=== PATIENT | female | born 1930 | race African-American/Black ===

== ENCOUNTER 2017-05-18 10:14 | Observation (INO) ==
--- NOTE | 2017-05-18 10:37 | Emergency Department Note ---
Disposition Clinical Impression: Shortness of breath Congestive heart failure Qualifiers: Heart failure type: diastolic Heart failure chronicity: acute on chronic Qualified Code(s): I50.33 - Acute on chronic diastolic (congestive) heart failure Disposition: Admitted As Inpatient Condition: Fair Time of Disposition: 15:00 SOB HPI - General Chief Complaint: ED Shortness of Breath/Dyspnea Stated Complaint: CIPRIANO Time Seen by Provider: 05/18/17 10:22 Source: family Mode of arrival: private vehicle Limitations: no limitations Nursing Notes Reviewed: Yes Vital Signs Reviewed: Yes - History of Present Illness 86-year-old female history of history of diastolic congestive heart failure, atrial fibrillation on anticoagulation presents to the ER with a chief complaint of shortness of breath. Patient states she has been sort of breath for the last 2-3 days. Reports more whenever she is up moving around. States it feels better when she sitting at rest. She has no chest pain during these events. She reports that she has been waking up with "rattling in her chest". No cough. No recent illnesses. No fevers sore throat runny nose nausea or vomiting. She is status post ablation for atrial fibrillation. She is on Coumadin for anticoagulation with 1 prior DVT 4 years ago. Pt Subjective Complaint: shortness of breath Onset (ago): day(s) Severity: moderate Consistency/Duration: intermittent Improves with: rest Worsens with: exertion Known history of: congestive heart failure Associated symptoms: Denies: chest pain, fever, cough, lower extremity pain Treatment prior to arrival: none Cough present: No Sputum production: No Sputum Amount: None - Related Data Home oxygen amount: none Home Medications Medication Instructions Recorded Confirmed Alendronate Sodium 70 mg PO 02/03/15 05/18/17 Aspirin Enteric Coated [Aspirin EC] 81 mg PO [facility] 02/03/15 05/18/17 Calcium Carbonate/Vitamin D3 1 each PO [facility] 02/03/15 05/18/17 [Calcium 500-Vit D3 400 Tablet] Cholecalciferol (Vitamin D3) 1,000 unit PO [facility] 02/03/15 05/18/17 [Vitamin D] Escitalopram [Lexapro] 10 mg PO QA 02/03/15 05/18/17 Metoprolol XL (24 HR) Succ [Toprol 50 mg PO BID 02/03/15 05/18/17 XL] Oxybutynin [Ditropan] 2.5 mg PO DAILY 02/03/15 05/18/17 Levothyroxine [Synthroid] 25 mcg PO QAM 11/15/15 05/18/17 Warfarin [Coumadin] 5 mg PO [id number] 11/15/15 05/18/17 Warfarin [Coumadin] 7.5 mg PO SUTH 11/15/15 05/18/17 Latanoprost [Xalatan] 1 drop OP HS 05/18/17 05/18/17 Pravastatin Sodium [Pravachol] 40 mg PO QPM 05/18/17 05/18/17 dilTIAZem HCl [Diltiazem 24Hr Cd] 120 mg PO DAILY 05/18/17 05/18/17 Previous Rx's Medication Instructions Recorded Potassium Chloride 20 meq PO DAILY #30 tab.er.prt 02/05/15 Furosemide [Lasix] 40 mg PO BID 30 Days tab 12/11/15 Allergies Allergy/AdvReac Type Severity Reaction Status Date / Time No Known Allergies Allergy Verified 05/18/17 10:20 All systems ED: reviewed and negative except as stated. Constitutional: Denies: fever Cardiovascular: Reports: dyspnea on exertion. Denies: chest pain Respiratory: Reports: dyspnea. Denies: cough Gastrointestinal: Denies: abdominal pain, nausea, vomiting Past Medical History - Past Medical History Attestation: Yes The following information was validated with the patient. 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 - Social History Smoking Status: Never smoker Smokeless Tobacco Status: No Alcohol use: Reports: rarely Drug use: Reports: none Physical Exam - General Limitations: no limitations General appearance: alert, in no apparent distress - Head Head exam: atraumatic, normocephalic - Eye Eye exam: Present: normal appearance - ENT ENT exam: normal exam - Neck Neck exam: Present: normal inspection, full ROM - Chest Chest inspection: Present: normal inspection, symmetric chest wall rise - Respiratory Respiratory exam: Present: normal lung sounds bilaterally - Cardiovascular Cardiovascular exam: Present: regular rate, normal rhythm, normal heart sounds - Abdominal Exam Abdominal exam: Present: soft, Non-Tender. Absent: tenderness - Extremities Exam Extremities exam: Present: normal inspection, full ROM - Expanded Upper Extremity Exam Shoulder exam: Present: normal inspection, full ROM Arm exam: Present: normal inspection, full ROM Elbow exam: Present: normal inspection, full ROM Forearm/Wrist exam: Present: normal inspection, full ROM Hand exam: Present: normal inspection, full ROM Vascular exam: Normal: radial pulse - Expanded Lower Extremity Exam Hip/Pelvis exam: Present: normal inspection, full ROM Upper leg exam: Present: normal inspection, full ROM Knee exam: Present: normal inspection, full ROM Lower leg exam: Present: normal inspection, full ROM, swelling (Scant lower extremity pitting edema) Ankle exam: Present: normal inspection, full ROM Foot/toe exam: Present: normal inspection, full ROM - Skin Skin exam: Present: warm, dry Course Course Narrative: Patient seen and examined. Vital signs reviewed. We will get an EKG, chest x- ray as well as labs including troponin and BNP. - Reevaluation(s) Reevaluation #1: Discussed results of imaging and labs with the patient. We will give her dose of IV Lasix here admit for CHF exacerbation, palpitations, exertional dyspnea. Vital Signs Temperature 97.7 F 05/18/17 10:20 Pulse Rate 85 05/18/17 10:20 Respiratory Rate 18 05/18/17 10:20 Blood Pressure 121/76 05/18/17 10:20 O2 Sat by Pulse Oximetry 96 05/18/17 10:20 Temperature 97.5 F L 05/18/17 13:05 Pulse Rate 84 05/18/17 13:05 Respiratory Rate 17 05/18/17 13:05 Blood Pressure 107/63 05/18/17 13:05 O2 Sat by Pulse Oximetry 95 05/18/17 13:05 Oxygen Delivery Oxygen Delivery Room Air Shortness of Breath/Dyspnea - Lab Data Lab results reviewed: Yes I reviewed the patient's lab results. Result diagrams: 05/18/17 10:43 05/18/17 10:43 Lab Results 05/18/17 05/18/17 05/18/17 Range/Units 10:43 10:43 10:43 WBC 6.6 (4.3-11.1) K/mcL RBC 4.38 (3.82-4.97) M/mcL Hgb 11.5 (11.5-15.4) g/dL Hct 36.3 (35.3-44.9) % MCV 82.9 L (83.0-100.0) fL MCH 26.3 L (28.0-33.3) pg MCHC 31.7 (31.6-35.5) g/dL RDW 14.6 H (11.5-14.5) % Plt Count 206 (140-400) K/mcL MPV 10.0 (9.4-12.4) fL Immature Gran % 0.5 (0-4) % Seg Neutrophils % 65.8 % Lymphocytes % 18.6 % Monocytes % 9.5 % Eosinophils % 3.8 % Basophils % 1.8 % Neutrophils # 4.4 (1.6-8.9) K/mcL Lymphocytes # 1.2 (0.6-4.6) K/mcL Monocytes # 0.6 (0.0-1.3) K/mcL Eosinophils # 0.3 (0.0-0.6) K/mcL Basophils # 0.1 (0.0-0.2) K/mcL PT 26.0 H (9.4-12.1) Seconds INR 2.4 Sodium 138 (136-145) mEq/L Potassium 4.1 (3.5-5.1) mEq/L Chloride 108 H (98-107) mEq/L Carbon Dioxide 23 (23-29) mEq/L BUN 21 (8-23) mg/dL Creatinine 0.91 (0.60-1.20) mg/dL Est GFR ( Amer) > 60 (> 60) Est GFR (Non-Af Amer) 59 L (> 60) BUN/Creatinine Ratio 23 (6-26) Glucose 105 (70-105) mg/dL Calculated Osmolality 289 (280-300) Calcium 8.9 (8.6-10.3) mg/dL Troponin I (< 0.04) ng/mL B-Natriuretic Peptide (Less than 100) pg/mL 05/18/17 05/18/17 Range/Units 10:43 10:43 WBC (4.3-11.1) K/mcL RBC (3.82-4.97) M/mcL Hgb (11.5-15.4) g/dL Hct (35.3-44.9) % MCV (83.0-100.0) fL MCH (28.0-33.3) pg MCHC (31.6-35.5) g/dL RDW (11.5-14.5) % Plt Count (140-400) K/mcL MPV (9.4-12.4) fL Immature Gran % (0-4) % Seg Neutrophils % % Lymphocytes % % Monocytes % % Eosinophils % % Basophils % % Neutrophils # (1.6-8.9) K/mcL Lymphocytes # (0.6-4.6) K/mcL Monocytes # (0.0-1.3) K/mcL Eosinophils # (0.0-0.6) K/mcL Basophils # (0.0-0.2) K/mcL PT (9.4-12.1) Seconds INR Sodium (136-145) mEq/L Potassium (3.5-5.1) mEq/L Chloride (98-107) mEq/L Carbon Dioxide (23-29) mEq/L BUN (8-23) mg/dL Creatinine (0.60-1.20) mg/dL Est GFR ( Amer) (> 60) Est GFR (Non-Af Amer) (> 60) BUN/Creatinine Ratio (6-26) Glucose (70-105) mg/dL Calculated Osmolality (280-300) Calcium (8.6-10.3) mg/dL Troponin I < 0.03 (< 0.04) ng/mL B-Natriuretic Peptide 695 H (Less than 100) pg/mL - Radiology Data Radiology results reviewed: Yes I reviewed the patient's radiology results. Chest X-Ray 05/18/17 10:29 IMPRESSION: Chronic small bilateral pleural effusions, minimally improved on the left compared to the previous examination. Pulmonary vascular congestion. Discoid atelectasis at the right lung base. Retrocardiac opacity on the left could represent atelectasis or pneumonia. D/ / Colton Marie MD / Colton Marie MD Interpreting Provider: Colton Marie MD - EKG Data EKG attestation: Yes I reviewed and interpreted this EKG. EKG results narrative: EKG demonstrates a paced rhythm with a rate of 81 bpm. Left axis deviation. Prolonged [place] interval of 207. Prolonged QRS duration 161. Poor R-wave progression. No gross ST elevations or depressions. No acute ischemic findings. No significant changes from previous EKG dated 12/10/15. Attestation Statement - Attestation Attestation: I, Celestino Rollins DO, examined this patient [id number] and my medical decision-making was reviewed with Dr. Donte Scott, Resident Physician. I agree with the documented findings, disposition and treatment plan as described except to the extent set forth below. Please see my progress notes for details. 86-year-old female presents to the emergency room with complaint of shortness of breath and palpitations intermittently over the last 3-4 days. Patient is a history of paroxysmal atrial fibrillation. She also has a history of right- sided diastolic heart failure. Patient does have some pitting edema in lower extremities. She does not have any coarse crackles or signs of wheezing on auscultation of the lungs. Her heart is regular with a normal sinus rhythm on EKG. The presenting physical exam is otherwise unremarkable except for some mild fluid overload lower extremities. Her vital signs are reviewed and are stable. After lengthy discussion the patient said that she has had issues with this in the past that required hospital admission but she feels like she is very early at this time. Denies any fevers or chills chest pain headache vision changes nausea vomiting or diarrhea. Her only complaint is intermittent palpitations and shortness of breath. Patient will be evaluated in detail the emergency room and disposition will be determined. See detailed documentation of the physical exam, medical intervention, medical decision-making and disposition in the resident physician's note. No critical care provider this patient's treatment course at this time. [id number] Patient has what appears to be slight bilateral pleural effusions and pulmonary congestion. She also is fluid accumulation in the legs. Her BNP is the lowest it has been my previous evaluation but she is symptomatic with the physical exam and findings on imaging. Patient was given 20 mg of Lasix in the emergency room from the hospital for further evaluation and possible social work consult. No other concerns or issues were noted. Hospitalist was contacted and no other concerns were noted during that conversation. Admission process will be completed at this time.
[2017-05-18 11:00] LABS: Basophils # 0.1 K/mcL (0.0-0.2); Basophils % 1.8 %; Eosinophils # 0.3 K/mcL (0.0-0.6); Eosinophils % 3.8 %; Hematocrit 36.3 % (35.3-44.9); Hemoglobin 11.5 g/dL (11.5-15.4); Immature Granulocytes % 0.5 % (0-4); Lymphocytes # 1.2 K/mcL (0.6-4.6); Lymphocytes % 18.6 %; Mean Corpuscular HGB Conc 31.7 g/dL (31.6-35.5); Mean Corpuscular Hemoglobin 26.3 pg (28.0-33.3); Mean Corpuscular Volume 82.9 fL (83.0-100.0); Monocytes # 0.6 K/mcL (0.0-1.3); Monocytes % 9.5 %; Neutrophils # 4.4 K/mcL (1.6-8.9); Platelet Count 206 K/mcL (140-400); Red Blood Count 4.38 M/mcL (3.82-4.97); Red Cell Distribution Width 14.6 % (11.5-14.5); Segmented Neutrophils % 65.8 %
[2017-05-18 11:07] LABS: INR 2.4
[2017-05-18 11:17] LABS: BUN/Creatinine Ratio 23 (6-26); Blood Urea Nitrogen 21 mg/dL (8-23); Calcium 8.9 mg/dL (8.6-10.3); Carbon Dioxide 23 mEq/L (23-29); Chloride 108 mEq/L (98-107); Glucose 105 mg/dL (70-105); Osmolality,Calculated 289 (280-300); Potassium 4.1 mEq/L (3.5-5.1); Sodium 138 mEq/L (136-145); eGFR For African Americans > 60 (> 60); eGFR For Non-African Americans 59 (> 60)
[2017-05-18] MEDS ORDERED: Furosemide 20 MG/2 ML VIAL IVP ONE (11:40)
--- NOTE | 2017-05-18 12:06 | Internal Med History&Physical ---
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 use: without fpc use Qualified Code(s): E11.9 - Type 2 diabetes mellitus without complications (4) Chronic anticoagulation Current visit: No Status: Chronic Chronic high amount therapeutic (5) HTN (hypertension) Current visit: No Status: Chronic Chronic and well-controlled Qualifiers: Hypertension type: essential hypertension Qualified Code(s): I10 - Essential (primary) hypertension (6) Diabetes mellitus type 2, diet-controlled Current visit: No Status: Chronic (7) CHF (congestive heart failure) Current visit: Yes Status: Acute Acute on chronic congestive heart failure IV Lasix Qualifiers: Heart failure type: diastolic Heart failure chronicity: acute on chronic Qualified Code(s): I50.33 - Acute on chronic diastolic (congestive) heart failure Internal Medicine - H&P: HPI Chief complaint: sob Admitted From: Emergency Dept Plans for Post Hospital Care: Home History of present illness: Ms. Osullivan is a 86 year old female Patient with history of diastolic heart failure, COPD on home O2 at night, high cholesterol, atrial fibrillation had AV node ablation and on Coumadin with pacemaker backup, hypothyroidism, CAD, hypertension, diabetes, high cholesterol , and history of DVT and GERD. Patient presented to emergency room with 3 days of shortness of breath worsening with exertion , PND and increased leg edema . evaluation in ER consistent with congestive heart failure by chest x-ray bnp [id number] patient will be admitted for further evaluation blood pressure is normal rhythm is a paced rhythm Past Med Surg Social Fam HX - Past Medical History Medical history: arthritis, atrial fibrillation, cardiomyopathy, CHF, COPD, coronary artery disease, DVT, diabetes, GERD, glaucoma, hyperlipidemia, hypertension, osteoporosis, renal disease, thyroid disease, valvular heart disease, other Psychiatric history: anxiety - Past Surgical History Surgical History: , hysterectomy, pacemaker - Social History Smoking Status: Never smoker Smokeless Tobacco Status: No Alcohol use: rarely Drug use: none - Family History Mother Living Status: Hx Family Cardiac Disorders: Yes (LA) Hx Family Respiratory Disorders: No Hx Family Cancer: No Hx Family GI Disorders: No Hx Family Endocrine Disorder: No Hx Family Neuromuscular Disorders: No Hx Family Neurologic Disorders: No Hx Family HEENT Disorders: No Hx Family Autoimmune Disorders: No Father Living Status: Hx Family Cardiac Disorders: No Hx Family Respiratory Disorders: No Hx Family Cancer: Yes Hx Family GI Disorders: No Hx Family Endocrine Disorder: No Hx Family Neuromuscular Disorders: No Hx Family Neurologic Disorders: No Hx Family HEENT Disorders: No Hx Family Autoimmune Disorders: No Internal Medicine - H&P: Meds Alendronate Sodium 70 mg PO TU 02/03/15 [History] Aspirin Enteric Coated [Aspirin EC] 81 mg PO QAM 02/03/15 [History] Calcium Carbonate/Vitamin D3 [Calcium 500-Vit D3 400 Tablet] 1 each PO QAM 02/03 [History] Cholecalciferol (Vitamin D3) [Vitamin D] 1,000 unit PO QA 02/03/15 [History] Diltiazem HCl [Diltiazem 24Hr Cd] 240 mg PO QPM 02/03/15 [History] Escitalopram [Lexapro] 10 mg PO QAM 02/03/15 [History] Metoprolol XL (24 HR) Succ [Toprol XL] 50 mg PO QPM 02/03/15 [History] Oxybutynin [Ditropan] 2.5 mg PO BID 02/03/15 [History] Pravastatin Sodium [Pravachol] 20 mg PO QPM 02/03/15 [History] Potassium Chloride 20 meq PO DAILY #30 tab.er.prt 02/05/15 [Rx] Levothyroxine [Synthroid] 25 mcg PO QAM 11/15/15 [History] Warfarin [Coumadin] 3.75 mg PO SUTUTHFR 11/15/15 [History] Warfarin [Coumadin] 5 mg PO MOWESA 11/15/15 [History] Furosemide [Lasix] 40 mg PO BID 30 Days tab 12/11/15 [Rx] OxyCODONE/APAP 10/325 [Percocet 10/325 MG] 1 each PO Q6HR PRN #24 tablet [Rx] 3 Allergy/AdvReac Type Severity Reaction Status Date / Time No Known Allergies Allergy Verified 05/18/17 10:20 All Systems PM: A 10-system review of systems was performed and is negative for pertinent findings except as documented above in the HPI. - Constitutional Constitutional: fatigue - EENT Eyes: no change in vision, no discharge, no pain, no photophobia Ears: no ear discharge, no ear pain, no tinnitus Nose, mouth and throat: no dysphagia, no nasal discharge, no neck pain, no sore throat - Cardiovascular Cardiovascular ROS IM: dyspnea, dyspnea on exertion, edema - Respiratory Respiratory: dyspnea, dyspnea on exertion - Gastrointestinal Gastrointestinal: no abdominal pain, no diarrhea, no hematemesis, no hematochezia, no melena, no nausea, no vomiting - Genitourinary Genitourinary: no change in urinary stream, no dysuria, no flank pain, no hematuria - Musculoskeletal Musculoskeletal ROS IM: no numbness, no tingling - Constitutional Vitals: Temp Pulse Resp BP Pulse Ox 97.7 F 80 20 116/75 96 05/18/17 10:20 05/18/17 11:30 05/18/17 11:30 05/18/17 11:30 05/18/17 11:30 - Head Head exam: Present: atraumatic, normocephalic - Eye Eye exam: Present: PERRL, conjuntiva pink, sclera anicteric Pupils: Present: PERRL - Respiratory Respiratory exam: Present: rales, rhonchi - Cardiovascular Cardiovascular exam: Present: RRR, +S1, +S2, systolic murmur. Absent: diastolic murmur, gallop, rubs - GI/Abdominal GI/Abdominal exam: Present: normal bowel sounds, soft, no peritoneal signs. Absent: distended, tenderness - Extremities Exam Extremities exam: Present: pedal edema Internal Med - H&P Results - Labs CBC & Chem 7: 05/18/17 10:43 05/18/17 10:43 Labs: Short CBC 05/18/17 Range/Units 10:43 WBC 6.6 (4.3-11.1) K/mcL Hgb 11.5 (11.5-15.4) g/dL Hct 36.3 (35.3-44.9) % Plt Count 206 (140-400) K/mcL Neutrophils # 4.4 (1.6-8.9) K/mcL BMP 05/18/17 10:43 Sodium 138 Potassium 4.1 Chloride 108 H Carbon Dioxide 23 BUN 21 Creatinine 0.91 Glucose 105 Calcium 8.9 Cardiac Enzymes 05/18/17 Range/Units 10:43 Troponin I < 0.03 (< 0.04) ng/mL - Impressions ITS Impressions Chest X-Ray 05/18/17 10:29 IMPRESSION: Chronic small bilateral pleural effusions, minimally improved on the left compared to the previous examination. Pulmonary vascular congestion. Discoid atelectasis at the right lung base. Retrocardiac opacity on the left could represent atelectasis or pneumonia. D/ / Colton Marie MD / Colton Marie MD Interpreting Provider: Colton Marie MD
[2017-05-18] MEDS ORDERED: Ondansetron 4 MG/2 ML VIAL IVP PRN (12:16)
[2017-05-18] MEDS ORDERED: Mag Hydrox/Al Hydrox/Simeth 30 ML UDC PO PRN (12:16)
[2017-05-18] MEDS ORDERED: Naloxone 0.4 MG/ML INJ IVP PRN (12:16)
[2017-05-18] MEDS ORDERED: MOM Conc 10 ML UD.LIQ PO PRN (12:16)
[2017-05-18] MEDS ORDERED: *HR* OxyCODONE/APAP 10/325 TABLET PO PRN (12:19)
[2017-05-18] MEDS ORDERED: Ipratropium/Albuterol Neb 3 ML IH PRN (12:24)
[2017-05-18] MEDS ORDERED: *HR* Warfarin 2.5 MG TABLET PO SCH (18:00)
[2017-05-18] MEDS ORDERED: *HR* Warfarin 4 MG TABLET PO ONE (18:00)
[2017-05-18] MEDS ORDERED: Warfarin perPT PO PRN (18:00)
[2017-05-18] MEDS: Diltiazem CD (24hr) 240 MG CAPSULE PO SCH (18:03)
[2017-05-18] MEDS: Metoprolol XL (24 HR) Succ 50 MG TAB.ER.24H PO SCH (18:04)
[2017-05-18] MEDS: Furosemide 40 MG/4 ML VIAL IVP SCH (20:53)
[2017-05-19 02:11] LABS: INR 2.4; Prothrombin Time 26.2 Seconds (9.4-12.1)
[2017-05-19 02:28] LABS: BUN/Creatinine Ratio 23 (6-26); Blood Urea Nitrogen 24 mg/dL (8-23); Carbon Dioxide 26 mEq/L (23-29); Chloride 106 mEq/L (98-107); Chol/HDL Ratio 2.2 (0-4.9); Cholesterol 143 mg/dL (< 200); Glucose 86 mg/dL (70-105); HDL Cholesterol 64 mg/dL (40-59); LDL Cholesterol,Calculated 64 mg/dL (0-99); Magnesium 2.1 mg/dL (1.6-2.6); Osmolality,Calculated 293 (280-300); Potassium 3.8 mEq/L (3.5-5.1); Sodium 140 mEq/L (136-145); Triglycerides 77 mg/dL (< 150); eGFR For African Americans > 60 (> 60); eGFR For Non-African Americans 51 (> 60)
[2017-05-19] MEDS: Levothyroxine 25 MCG TABLET PO SCH (06:49)
[2017-05-19] MEDS ORDERED: NON-FORMULARY MEDICATION 1 EACH EACH (Calcium Carbonate/Vitamin D3 [Calcium 500-Vit D3 400 PO SCH (09:00)
[2017-05-19] MEDS: Aspirin Enteric Coated 81 MG Tablet PO SCH (09:03)
[2017-05-19] MEDS: Furosemide 40 MG/4 ML VIAL IVP SCH ×2 (09:03→21:57)
[2017-05-19] MEDS: Cholecalciferol (D-3) 1,000 UNIT TABLET PO SCH (09:03)
[2017-05-19] MEDS: Isosorbide MONOnitrate (24 HR) 30 MG TAB.ER.24H PO SCH (09:07)
--- NOTE | 2017-05-19 13:56 | Internal Med Progress Note ---
Date of Encounter: 05/19/17 Time of Encounter: 13:18 - Assessment and plan (1) Acute CHF (congestive heart failure) Current Visit: Yes Status: Acute Assessment and plan: Clinically improving continue IV diuresis (lasix 40mg IV BID) will switch to PO lasix in am continue to monitor daily weight, strict I/Os fluid restriction diet Qualifiers: Heart failure type: diastolic Qualified Code(s): I50.31 - Acute diastolic ( congestive) heart failure (2) Atrial fibrillation Current Visit: No Status: Chronic Assessment and plan: Rate controlled with BB anticoagulated with coumadin continue coumadin (pharmacist to dose) goal INR: 2-3 Qualifiers: Atrial fibrillation type: chronic Qualified Code(s): I48.2 - Chronic atrial fibrillation (3) Diabetes mellitus type 2, diet-controlled Current Visit: No Status: Chronic Assessment and plan: Sliding scale insulin algorithm monitor FS and BG ADA diet (4) HTN (hypertension) Current Visit: No Status: Chronic Assessment and plan: Noted to be hypotensive but clinically asymptomatic will continue to closely monitor will hold antihypertensive medications for SBP<100 Qualifiers: Hypertension type: essential hypertension Qualified Code(s): I10 - Essential (primary) hypertension (5) Hyperlipidemia Current Visit: No Status: Chronic Assessment and plan: continue statin therapy Qualifiers: Hyperlipidemia type: mixed hyperlipidemia Qualified Code(s): E78.2 - Mixed hyperlipidemia (6) Hypothyroidism Current Visit: Yes Status: Chronic Assessment and plan: continue home dose of levothyroxine Qualifiers: Hypothyroidism type: unspecified Qualified Code(s): E03.9 - Hypothyroidism , unspecified - Subjective Interval history: Patient seen and examined with family present at bedside. Resting in bed and reports of feeling significantly better compared to previous day. Currently saturating well on room air. - Constitutional Vitals: Temp Pulse Resp BP Pulse Ox 97.6 F 82 18 91/51 94 05/19/17 11:00 05/19/17 11:00 05/19/17 11:00 05/19/17 11:00 05/19/17 11:00 General appearance: Present: A&O X 3, no acute distress, obese - Head Head exam: Present: atraumatic, normocephalic - Eye Eye exam: Present: conjuntiva pink, sclera anicteric - Respiratory Respiratory exam: Absent: respiratory distress, wheezes (scattered rales) - Cardiovascular Cardiovascular exam: Present: RRR, +S1, +S2. Absent: diastolic murmur, gallop, rubs, systolic murmur - GI/Abdominal GI/Abdominal exam: Present: normal bowel sounds, soft, no peritoneal signs. Absent: distended, tenderness - Extremities Exam Extremities exam: Present: warm, radial pulses palpable and symmetrical. Absent : calf tenderness, pedal edema - Neurological Exam Neurological exam: Present: alert, oriented X3 Internal Medicine: Result - Labs CBC & Chem 7: 05/18/17 10:43 05/19/17 00:40 Labs: BMP 05/19/17 00:40 Sodium 140 Potassium 3.8 Chloride 106 Carbon Dioxide 26 BUN 24 H Creatinine 1.03 Glucose 86 Calcium 9.0 Cardiac Enzymes 05/18/17 05/18/17 05/19/17 Range/Units 14:45 20:50 00:40 Troponin I < 0.03 < 0.03 < 0.03 (< 0.04) ng/mL - ABG Interpretation ABG results: PT/INR, D-dimer PT 26.2 Seconds (9.4-12.1) H 05/19/17 00:40 Consult Discharge Plan - Plan Referrals: Beth Wright DO [Primary Care Provider] -
[2017-05-19] MEDS ORDERED: D5% in Water 1,000 ML IVC PRN (13:57)
[2017-05-19] MEDS ORDERED: Dextrose Gel 15 GM/37.5 ML TUBE PO PRN ×2 (13:57)
[2017-05-19] MEDS ORDERED: *HR* Dextrose 50 % in Water (Syg) 50 ML SYRINGE IVP PRN (13:57)
[2017-05-19] MEDS: Insulin LISPRO 300 UNITS/3 ML VIAL SQ SCH (16:17)
[2017-05-19] MEDS: Diltiazem CD (24hr) 240 MG CAPSULE PO SCH (17:05)
[2017-05-19] MEDS: Metoprolol XL (24 HR) Succ 50 MG TAB.ER.24H PO SCH (17:05)
[2017-05-19] MEDS ORDERED: *HR* Warfarin 4 MG TABLET PO ONE (18:00)
[2017-05-19] MEDS ORDERED: *HR* Warfarin 5 MG TABLET PO SCH (18:00)
[2017-05-19] MEDS ORDERED: Insulin LISPRO 300 UNITS/3 ML VIAL SQ SCH (21:00)
[2017-05-20] MEDS: Levothyroxine 25 MCG TABLET PO SCH (06:11)
[2017-05-20 07:07] LABS: INR 2.1; Prothrombin Time 22.5 Seconds (9.4-12.1)
[2017-05-20 07:20] LABS: BUN/Creatinine Ratio 30 (6-26); Blood Urea Nitrogen 29 mg/dL (8-23); Calcium 8.7 mg/dL (8.6-10.3); Carbon Dioxide 27 mEq/L (23-29); Chloride 106 mEq/L (98-107); Glucose 84 mg/dL (70-105); Osmolality,Calculated 295 (280-300); Phosphorous 3.6 mg/dL (2.7-4.5); Potassium 3.7 mEq/L (3.5-5.1); Sodium 140 mEq/L (136-145); eGFR For African Americans > 60 (> 60); eGFR For Non-African Americans 54 (> 60)
[2017-05-20 07:30] LABS: Basophils # 0.1 K/mcL (0.0-0.2); Basophils % 1.6 %; Eosinophils # 0.3 K/mcL (0.0-0.6); Eosinophils % 4.2 %; Hematocrit 35.2 % (35.3-44.9); Hemoglobin 11.3 g/dL (11.5-15.4); Immature Granulocytes % 0.3 % (0-4); Lymphocytes # 1.6 K/mcL (0.6-4.6); Lymphocytes % 21.9 %; Mean Corpuscular HGB Conc 32.1 g/dL (31.6-35.5); Mean Corpuscular Volume 81.1 fL (83.0-100.0); Mean Platelet Volume 10.6 fL (9.4-12.4); Monocytes # 0.9 K/mcL (0.0-1.3); Monocytes % 11.4 %; Neutrophils # 4.5 K/mcL (1.6-8.9); Platelet Count 214 K/mcL (140-400); Red Blood Count 4.34 M/mcL (3.82-4.97); Red Cell Distribution Width 14.4 % (11.5-14.5); Segmented Neutrophils % 60.6 %
[2017-05-20] MEDS ORDERED: Furosemide 40 MG TABLET PO SCH (08:00)
[2017-05-20 09:27] LABS: Hemoglobin A1C 5.6 %
[2017-05-20] MEDS: Insulin LISPRO 300 UNITS/3 ML VIAL SQ SCH ×2 (09:37→12:38)
[2017-05-20] MEDS: Aspirin Enteric Coated 81 MG Tablet PO SCH (09:41)
[2017-05-20] MEDS: Isosorbide MONOnitrate (24 HR) 30 MG TAB.ER.24H PO SCH (09:41)
[2017-05-20] MEDS: Cholecalciferol (D-3) 1,000 UNIT TABLET PO SCH (09:41)
--- NOTE | 2017-05-20 10:39 | Electrocardiograph Report ---
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
--- NOTE | 2017-05-20 12:03 | Discharge Summary ---
Date of Encounter: 05/20/17 Time of Encounter: 12:00 - Discharge Diagnosis (1) Acute CHF (congestive heart failure) Priority: Primary Status: Acute Qualifiers: Heart failure type: diastolic Qualified Code(s): I50.31 - Acute diastolic ( congestive) heart failure (2) Atrial fibrillation Priority: Secondary Status: Chronic Qualifiers: Atrial fibrillation type: chronic Qualified Code(s): I48.2 - Chronic atrial fibrillation (3) Diabetes mellitus type 2, diet-controlled Priority: Secondary Status: Chronic (4) HTN (hypertension) Priority: Secondary Status: Chronic Qualifiers: Hypertension type: essential hypertension Qualified Code(s): I10 - Essential (primary) hypertension (5) Hyperlipidemia Priority: Secondary Status: Chronic Qualifiers: Hyperlipidemia type: mixed hyperlipidemia Qualified Code(s): E78.2 - Mixed hyperlipidemia (6) Hypothyroidism Priority: Secondary Status: Chronic Qualifiers: Hypothyroidism type: unspecified Qualified Code(s): E03.9 - Hypothyroidism , unspecified - Discharge Medications Home Medications: Alendronate Sodium 70 mg PO TU 02/03/15 [History] Aspirin Enteric Coated [Aspirin EC] 81 mg PO [facility] 02/03/15 [History] Calcium Carbonate/Vitamin D3 [Calcium 500-Vit D3 400 Tablet] 1 each PO [facility] 02/03 [History] Cholecalciferol (Vitamin D3) [Vitamin D] 1,000 unit PO QA 02/03/15 [History] Escitalopram [Lexapro] 10 mg PO QAM 02/03/15 [History] Metoprolol XL (24 HR) Succ [Toprol XL] 50 mg PO BID 02/03/15 [History] Oxybutynin [Ditropan] 2.5 mg PO DAILY 02/03/15 [History] Potassium Chloride 20 meq PO DAILY #30 tab.er.prt 02/05/15 [Rx] Levothyroxine [Synthroid] 25 mcg PO QAM 11/15/15 [History] Warfarin [Coumadin] 5 mg PO [id number] 11/15/15 [History] Warfarin [Coumadin] 7.5 mg PO SUTH 11/15/15 [History] Furosemide [Lasix] 40 mg PO BID 30 Days tab 12/11/15 [Rx] Latanoprost [Xalatan] 1 drop OP HS 05/18/17 [History] Pravastatin Sodium [Pravachol] 40 mg PO QPM 05/18/17 [History] dilTIAZem HCl [Diltiazem 24Hr Cd] 120 mg PO DAILY 05/18/17 [History] Allergies/Adverse Reactions: 3 Allergy/AdvReac Type Severity Reaction Status Date / Time No Known Allergies Allergy Verified 05/18/17 10:20 Procedures/tests Complete & Pending: Procedures Performed prior 72 hours Category Date Time Status EV echocardiogram Stat Y 05/19/17 09:24 Completed Date of admission: 05/18/17 12:21 Primary care physician: Beth Wright DO Discharging clinician: Misty Patterson Anticipated date of discharge: 05/20/17 - Patient Status Disposition: Home, Self-Care Condition: Good Functional capacity at discharge: independent ambulation Overall status at discharge: patient is back to baseline - Discharge Instructions Follow Up With: Beth Wright DO [Primary Care Provider] - Additional Instructions: Please follow up with your primary care physician within five days after your discharge from the hospital Please follow up with your king maker within one week after your discharge from the hospital Please closely monitor your blood pressure at home. Hold your home dose of metoprolol and cardizem if you are noted to have systolic blood pressure less than 100 Continue lasix 40mg twice a day at home Resume all your other home medications as prescribed by your primary care physician - Diet and Activity Activity: resume usual activities as tolerated, wear oxygen at night Diet: diabetic diet, low fat, low cholesterol, low salt diet Hospital course: Ms. Osullivan is a 86 year old female with PMH Of Afib, CHF, DM, HTN, HLD who was admitted for acute CHF exacerbation. She was started on IV diuretics to which she responded appropriately. She is currently back to her baseline respiratory status and saturating well on room air. She is stable for discharge to home with follow up with your primary care physician and king maker. - Time Spent with Patient Total time spent providing and/or coordinating discharge services: Less than 30 minutes - Constitutional Vitals: Temp Pulse Resp BP Pulse Ox 98.0 F 84 14 97/57 98 05/20/17 07:10 05/20/17 07:10 05/20/17 07:10 05/20/17 07:10 05/20/17 07:10 General appearance: Present: cooperative, A&O X 3, pleasant, no acute distress, obese - Head Head exam: Present: atraumatic, normocephalic - Eye Eye exam: Present: conjuntiva pink, sclera anicteric - Respiratory Respiratory exam: Present: CTAB. Absent: accessory muscle use, rales, rhonchi, wheezes - Cardiovascular Cardiovascular exam: Present: RRR, +S1, +S2. Absent: diastolic murmur, gallop, rubs, systolic murmur - GI/Abdominal GI/Abdominal exam: Present: normal bowel sounds, soft, no peritoneal signs. Absent: distended, tenderness - Extremities Exam Extremities exam: Present: warm, radial pulses palpable and symmetrical. Absent : calf tenderness, pedal edema - Neurological Exam Neurological exam: Present: alert, oriented X3 - Psychiatric Psychiatric exam: Present: normal affect, normal mood
[2017-05-20 12:22] VITALS: BP 113/60
[2017-05-20] MEDS ORDERED: *HR* Warfarin 4 MG TABLET PO ONE (18:00)
[2017-05-22] MEDS ORDERED: ALENDRONATE 70 MG PO SCH (12:19)
== END 2017-05-20 13:05 | disposition home or self-care (01) ==
LOC: EMEROO 10:14 → 2ANU 10:14
PROVIDERS: ADMIT Internal Medicine Cardiovascular Disease; ATTEND Internal Medicine